=== PATIENT | female | born 1960 | race Caucasian/White ===

== ENCOUNTER 2016-05-08 10:15 | Emergency (ER) | payer OTHER ==
--- NOTE | 2016-05-08 10:39 | ERPHSYRPT ---
- History of Present Illness Time Seen by Provider: 05/08/16 10:31 Source: patient Exam Limitations: no limitations Patient Subjective Stated Complaint: LEFT FACIAL SWELLING, PAIN IN THE BACK OF THE JAW. PT STATES "ITS EFFECTING MY EAR AND THROAT." Triage Nursing Assessment: LEFT SIDE OF FACE SWOLLEN, BACK LEFT UPPER TOOTH APPEARS TO BE INFECTED BROWN/YELLOW IN COLOR, RED AROUND THE AREA. Physician History: The patient is a 56-year-old female complains of right sided facial swelling and jaw pain since yesterday morning. She says she doesn't have money to see a dentist. She believes it's her bad teeth that's causing the problems. Timing/Duration: gradual onset Severity: moderate ENT Location: dental Prearrival Treatment: over the counter meds Associated Symptoms: ear pain (R), tooth pain Allergies/Adverse Reactions: No Known Drug Allergies Allergy (Unverified 09/21/11 17:54) Home Medications: No Home Meds 0 09/21/11 [History] Hx Tetanus, Diphtheria Vaccination/Date Given: Yes Hx Influenza Vaccination/Date Given: No Hx Pneumococcal Vaccination/Date Given: No Immunizations Up to Date: Yes - Review of Systems Constitutional: No Fever, No Chills Eyes: No Symptoms Ears, Nose, & Throat: Ear Pain, Loose Teeth Respiratory: No Cough, No Dyspnea Cardiac: No Chest Pain, No Edema, No Syncope Abdominal/Gastrointestinal: No Abdominal Pain, No Nausea, No Vomiting, No Diarrhea Genitourinary Symptoms: No Dysuria Musculoskeletal: No Back Pain, No Neck Pain Skin: No Rash Neurological: No Dizziness, No Focal Weakness, No Sensory Changes Psychological: No Symptoms Endocrine: No Symptoms Hematologic/Lymphatic: No Symptoms Immunological/Allergic: No Symptoms All Other Systems: Reviewed and Negative - Past Medical History Pertinent Past Medical History: Yes Neurological History: No Pertinent History ENT History: No Pertinent History Cardiac History: No Pertinent History Respiratory History: No Pertinent History Endocrine Medical History: No Pertinent History Musculoskeletal History: No Pertinent History GI Medical History: No Pertinent History History: No Pertinent History Psycho-Social History: No Pertinent History Female Reproductive Disorders: No Pertinent History - Past Surgical History Past Surgical History: Yes Neuro Surgical History: No Pertinent History Cardiac: No Pertinent History Respiratory: No Pertinent History Gastrointestinal: No Pertinent History Genitourinary: No Pertinent History Musculoskeletal: No Pertinent History Female Surgical History: No Pertinent History Other Surgical History: TEMPORARY CHOLOSTOMY - Social History Smoking Status: Current every day smoker Exposure to second hand smoke: Yes Drug Use: marijuana Patient Lives Alone: No - Female History Hx Now: No - Nursing Vital Signs Nursing Vital Signs: Initial Vital Signs Temperature 97.6 F Temperature Source Oral Pulse Rate 79 Respiratory Rate 16 Blood Pressure 138/96 Pain Intensity 6 - Physical Exam General Appearance: mild distress Eye Exam: bilateral eye: PERRL, EOMI Ear Exam: bilateral ear: auricle normal, canal normal, TM normal Nasal Exam: normal inspection Throat Exam: dental tenderness (Examination of the dentition reveals numerous cavities and decaying teeth. The posterior molar on the upper right has been extracted previously. The remaining 2 molars are decaying. The gums are swollen, red, and tender she rounding these decaying teeth.) Neck Exam: supple Cardiovascular/Respiratory Exam: normal breath sounds, regular rate/rhythm Abdominal Exam: non-tender, soft Neurologic Exam: alert, oriented x 3, sensation nml, No motor deficits Skin Exam: normal color, warm, dry SpO2 Interpretation: normal SpO2: 97 Oxygen Delivery: Room Air - Progress Progress: improved, pain not gone completely Counseled pt/family regarding: diagnosis, need for follow-up - Departure Time of Disposition: 10:44 Departure Disposition: Home Clinical Impression: Dental abscess Condition: Stable Critical Care Time: No Additional Instructions: Take the penicillin and naproxen as directed. Follow up with a dentist soon. Prescriptions: Naproxen 500 mg PO BID PRN #30 tablet Penicillin V Potassium 500 mg PO QID #40 tablet
[2016-05-08] MEDS ORDERED: TORAdol 30 mg Injection IM ONE (10:48)
[2016-05-08] MEDS ORDERED: TORAdol 30 mg Injection ONE (10:54)
[2016-05-08 11:22] VITALS: BP 147/81; PULSE 78; O2SAT 96
== END 2016-05-08 11:21 ==
LOC: ED 10:15
DX: K04.7 Periapical abscess without sinus (principal); H92.01 Otalgia, right ear
CPT/HCPCS: 96372; 99282; J1885

== ENCOUNTER 2020-11-11 13:29 | Emergency (ER) | payer OTHER ==
[2020-11-11 13:44] VITALS: BP 157/79; PULSE 96; O2SAT 96
--- NOTE | 2020-11-11 13:59 | ERPHSYRPT ---
- History of Present Illness Time Seen by Provider: 11/11/20 13:36 Source: patient Exam Limitations: no limitations Patient Subjective Stated Complaint: cough, sore throat, BANSAL, nasal congestion x 1 day Triage Nursing Assessment: pt to ED c/o cough, sore throat, BANSAL, nasal congestion x 1 day. pt reports that she feels worse today than she did yesterday. attempted to be seen in clinic but was not able to do so d/t insurance problems. pt rates 1/10 pain now, "more just uncomfortable than pain." denies NVD. Physician History: 60 years old with history of tobacco abuse, COPD presented in the ER with nasal congestion, stopped up ears with sore throat and cough productive of yellow- green sputum. Patient does have chronic smoker cough but lately she noticed change in the color. Patient also reports yellowish nasal discharge. Denies fever or chills but has some body aches. Denies any shortness of breath or wheezing. Reports her mother having similar symptoms. Patient is worried about her getting pneumonia. Timing/Duration: day(s) (1), gradual onset, worse Cough Quality/Degree: moderate, productive cough, sputum Possible Cause: occasional episodes Modifying Factors: Worsens With: coughing Associated Symptoms: cough, facial pain, nasal congestion, nasal drainage, sinus infection, sore throat, No fever, No chills, No chest pain/soreness, No shortness of breath Allergies/Adverse Reactions: No Known Drug Allergies Allergy (Verified 11/11/20 13:44) Home Medications: No Home Meds [No Home Meds] 0 09/21/11 [History] Hx Tetanus, Diphtheria Vaccination/Date Given: No Hx Influenza Vaccination/Date Given: No Hx Pneumococcal Vaccination/Date Given: No Immunizations Up to Date: No Travel Risk - International Travel Have you traveled outside of the country in past 3 weeks: No - Coronavirus Screening Are you exhibiting any of the following symptoms?: Yes Symptoms: Cough: New Onset, Headaches/Body Aches/Fatigue Close contact with a COVID-19 positive Pt in past 14-21 Days: No - Vaccine Status Have you recieved a Covid-19 vaccination: No - Review of Systems Constitutional: No Symptoms Eyes: No Symptoms Ears, Nose, & Throat: Nose Congestion, Nose Discharge, Sinus Drainage, Throat Pain, Throat Swelling Respiratory: Cough (Yeah) Cardiac: No Symptoms Abdominal/Gastrointestinal: No Symptoms Genitourinary Symptoms: No Symptoms Musculoskeletal: Myalgias Neurological: No Symptoms Psychological: No Symptoms Endocrine: No Symptoms - Past Medical History Pertinent Past Medical History: No Neurological History: No Pertinent History ENT History: No Pertinent History Cardiac History: No Pertinent History Respiratory History: No Pertinent History Endocrine Medical History: No Pertinent History Musculoskeletal History: No Pertinent History GI Medical History: No Pertinent History History: No Pertinent History Psycho-Social History: No Pertinent History Female Reproductive Disorders: No Pertinent History - Past Surgical History Past Surgical History: Yes Neuro Surgical History: No Pertinent History Cardiac: No Pertinent History Respiratory: No Pertinent History Gastrointestinal: No Pertinent History Genitourinary: No Pertinent History Musculoskeletal: No Pertinent History Female Surgical History: No Pertinent History Other Surgical History: TEMPORARY COLOSTOMY -years ago - Social History Smoking Status: Current every day smoker Exposure to second hand smoke: Yes Drug Use: marijuana Patient Lives Alone: No - Female History Hx Now: No - Nursing Vital Signs Nursing Vital Signs: Initial Vital Signs Temperature 97.7 F 11/11/20 13:34 Pulse Rate 96 H 11/11/20 13:34 Respiratory Rate 18 11/11/20 13:34 Blood Pressure 157/79 11/11/20 13:34 O2 Sat by Pulse Oximetry 96 11/11/20 13:34 Pain Scale Pain Intensity 1 - Physical Exam General Appearance: no apparent distress, alert Eye Exam: PERRL/EOMI, eyes nml inspection Ears, Nose, Throat Exam: moist mucous membranes, pharyngeal erythema, other (Nasal mucosal injection. Maxillary tenderness bilaterally. 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 With her history of COPD tobacco abuse and brings sputum although her lungs sounds clear right now I will give her Z-Maximilian and inhaler, outpatient follow-up recommended. Blood Culture(s) Obtained: No Antibiotics given: Yes Counseled pt/family regarding: diagnosis, need for follow-up - Departure Departure Disposition: Home Clinical Impression: URI with cough and congestion Condition: Stable Critical Care Time: No Referrals: ARIANNA RICE MD [Primary Care Provider] - Follow Up with PCP/3 days Instructions: Sinusitis, Adult (DC) Additional Instructions: Cut down on smoking. Take Tylenol as needed for aches and pains. Follow-up with primary care for reevaluation. Return to ER for worsening cough or if develop fever chills shortness of breath etc. Prescriptions: Albuterol 8 gm Mdi Hfa [Ventolin Hfa MDI] 8 gm IH Q4H #2 [email or web address] Azithromycin 250 mg [Zithromax 250 MG TABLET] 250 mg PO ZPACK #6 tablet
== END 2020-11-11 14:21 | disposition home or self-care (01) ==
LOC: ED 13:29
DX: J06.9 Acute upper respiratory infection, unspecified (principal); J44.9 Chronic obstructive pulmonary disease, unspecified; J40 Bronchitis, not specified as acute or chronic; Z87.891 Personal history of nicotine dependence
CPT/HCPCS: 99283

== ENCOUNTER 2022-07-05 16:06 | Emergency (ER) | payer OTHER ==
--- NOTE | 2022-07-05 16:13 | ERPHSYRPT ---
- History of Present Illness Time Seen by Provider: 07/05/22 16:12 Source: patient Exam Limitations: no limitations Physician History: This is an overweight 62-year-old white female who has no primary care provider at this time and presents with the aches, sore throat, bilateral ear pain without drainage and headache since this morning. Patient states that she has no known drug allergies. Patient denies chest pain. She denies shortness of breath. She has no abdominal pain. Patient is a daily smoker of cigarettes. Patient has been diagnosed with a low thyroid level, hyperlipidemia, GERD and hypertension in the past. When I questioned her about diabetes, the patient stated she is not diabetic. She has no known exposures to individuals with similar symptoms or who have been diagnosed with flu. Timing/Duration: today Cough Quality/Degree: no cough Possible Cause: no prior episodes Modifying Factors: Improves With: nothing Associated Symptoms: earache (Bilateral), headache (Mild), muscle aches, nasal congestion, sore throat, No cough, No shortness of breath Allergies/Adverse Reactions: No Known Drug Allergies Allergy (Verified 11/11/20 13:44) Home Medications: Atorvastatin Calcium [Lipitor] 10 mg PO DAILY 07/05/22 [History] Omeprazole 20 mg PO DAILY 07/05/22 [History] atenoloL [Atenolol] 25 mg PO DAILY 07/05/22 [History] lisinopriL [Lisinopril] 40 mg PO DAILY 07/05/22 [History] Hx Tetanus, Diphtheria Vaccination/Date Given: No Hx Influenza Vaccination/Date Given: No Hx Pneumococcal Vaccination/Date Given: No Travel Risk - International Travel Have you traveled outside of the country in past 3 weeks: No - Coronavirus Screening Are you exhibiting any of the following symptoms?: Yes Symptoms: Headaches/Body Aches/Fatigue Close contact with a COVID-19 positive Pt in past 14-21 Days: No - Vaccine Status Have you recieved a Covid-19 vaccination: No - Review of Systems Constitutional: No Symptoms Eyes: No Symptoms Ears, Nose, & Throat: Ear Pain, Nose Congestion, Throat Pain Respiratory: No Symptoms Cardiac: No Symptoms Abdominal/Gastrointestinal: No Symptoms Genitourinary Symptoms: No Symptoms Musculoskeletal: Arthralgias, Myalgias Skin: No Symptoms Neurological: No Symptoms Psychological: No Symptoms Endocrine: No Symptoms Hematologic/Lymphatic: No Symptoms Immunological/Allergic: No Symptoms All Other Systems: Reviewed and Negative - Past Medical History Pertinent Past Medical History: No Neurological History: No Pertinent History ENT History: No Pertinent History Cardiac History: Hypertension Respiratory History: No Pertinent History Endocrine Medical History: Diabetes Type II, Hypothyroidism Musculoskeletal History: Arthritis GI Medical History: No Pertinent History History: No Pertinent History Psycho-Social History: No Pertinent History Female Reproductive Disorders: No Pertinent History - Past Surgical History Past Surgical History: Yes Neuro Surgical History: No Pertinent History Cardiac: No Pertinent History Respiratory: No Pertinent History Gastrointestinal: No Pertinent History Genitourinary: No Pertinent History Musculoskeletal: No Pertinent History Female Surgical History: No Pertinent History Other Surgical History: TEMPORARY COLOSTOMY -years ago - Social History Smoking Status: Current every day smoker Exposure to second hand smoke: Yes Drug Use: marijuana Patient Lives Alone: No - Nursing Vital Signs Nursing Vital Signs: Initial Vital Signs Temperature 98.7 F 07/05/22 16:12 Pulse Rate 75 07/05/22 16:12 Respiratory Rate 20 07/05/22 16:12 Blood Pressure 160/93 07/05/22 16:12 O2 Sat by Pulse Oximetry 97 07/05/22 16:12 Pain Scale Pain Intensity 7 - Physical Exam General Appearance: no apparent distress, alert, anxiety Eye Exam: PERRL/EOMI, eyes nml inspection Ears, Nose, Throat Exam: normal ENT inspection, TMs normal, moist mucous membranes, pharyngeal erythema Neck Exam: normal inspection, non-tender, supple, full range of motion Respiratory Exam: normal breath sounds (Mild), lungs clear, airway intact, No chest tenderness, No respiratory distress Cardiovascular Exam: regular rate/rhythm, normal heart sounds, normal peripheral pulses Gastrointestinal/Abdomen Exam: soft, normal bowel sounds, No tenderness Pelvic Exam: not done Rectal Exam: not done Back Exam: normal inspection, normal range of motion, No CVA tenderness, No vertebral tenderness Extremity Exam: normal inspection, normal range of motion, pelvis stable Neurologic Exam: alert, oriented x 3, cooperative, 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 nml as tested, normal mood/affect, nml cerebellar function, nml station & gait, sensation nml Skin Exam: normal color, warm, dry Lymphatic Exam: No adenopathy SpO2 Interpretation: normal O2 Delivery: Room Air - Course Nursing assessment & vital signs reviewed: Yes Lab/Rad Data: Laboratory Results 07/05/22 07/05/22 Range/Units 17:00 17:00 Influenza Type A Ag NEGATIVE (NEGATIVE) Influenza Type B Ag NEGATIVE (NEGATIVE) RSV (PCR) NEGATIVE (Negative) SARS-CoV-2 (PCR) POSITIVE A (NEGATIVE) Group A Strep Antibody NOT DETECTED (NEGATIVE) - Progress Air Movement: good Progress Note: 07/05/22 17:50 This patient's level of medical complexity and work-up was based on the patient's past medical history, review of her medication list, review of her medication allergy list, past medical history and physical findings on examination. The work-up performed includes group A strep, influenza a, B COVID and RSV swabs. The results were reviewed by me and patient is positive for COVID. The discharge instructions are to drink plenty of clear liquids. Take the medication I provided for which includes hydrocodone elixir and steroid. In the emergency room here we will provide her with prednisone 20 mg orally and 10 mL of hydrocodone elixir. Blood Culture(s) Obtained: No Antibiotics given: No Counseled pt/family regarding: lab results, diagnosis, need for follow-up Medical Desision Making - Discussion of managment Reviewed:: Test results Agreed on:: Treatment plan - Diagnostic Testing Diagnostic test were ordered, analyzed, and reviewed by me: Yes - Risk of complications Low Risk: Low risk of morbidity from additional dx testing or treatment The pt has a mod risk of morbidity or mortality based on: Need for prescription drug management - Departure Departure Disposition: Home Clinical Impression: COVID-19 virus infection, Viral pharyngitis Condition: Stable Critical Care Time: No Referrals: AJ BULLARD MD [Primary Care Provider] - Follow up/PCP as directed Additional Instructions: Drink plenty of clear liquids. Take your medication as prescribed. Quarantine yourself for 7 to 10 days or if you are working follow their protocol. Prescriptions: Hydrocodone/Acetaminophen [Hydrocodone-Acetamn 7.5-325/15] 10 ml PO Q8H PRN PRN #120 ml MDD 30 ml PRN Reason: Cough Prednisone 10 mg [Deltasone 10 mg] 10 mg PO TID #12 tablet
[2022-07-05 17:45] LABS: INFLUENZA A NEGATIVE (NEGATIVE); INFLUENZA B NEGATIVE (NEGATIVE); RESPIRATORY SYNCTIAL VIRUS NEGATIVE (Negative)
[2022-07-05 17:48] LABS: SARS-CoV-2 Xpert Express POSITIVE (NEGATIVE)
[2022-07-05] MEDS ORDERED: HYDROCODONE-ACETAMIN 2.5-108/5 ML SOLUTION PO STA (17:55)
[2022-07-05] MEDS ORDERED: DELTASONE 20 MG PO ONE (17:55)
[2022-07-05] MEDS ORDERED: HYDROCODONE-ACETAMIN 2.5-108/5 ML SOLUTION ONE (17:59)
[2022-07-05] MEDS ORDERED: DELTASONE 20 MG ONE (17:59)
[2022-07-05 18:08] VITALS: BP 168/74; PULSE 68; O2SAT 98
== END 2022-07-05 18:09 | disposition home or self-care (01) ==
LOC: ED 16:06
DX: U07.1 COVID-19 (principal); J02.9 Acute pharyngitis, unspecified; H92.03 Otalgia, bilateral; R51.9 Headache, unspecified; I10 Essential (primary) hypertension; Z79.891 Long term (current) use of opiate analgesic; Z79.52 Long term (current) use of systemic steroids; Z79.899 Other long term (current) drug therapy; Z28.310 Unvaccinated for COVID-19; Z72.0 Tobacco use
CPT/HCPCS: 0241U; 87651; 99283; A9270-GY